=== PATIENT | male | born 1950 | race Caucasian/White ===

== ENCOUNTER → 2017-12-31 09:54 | Outpatient (CLI) | payer MEDICARE, SELFPAY ==
--- NOTE | 2017-12-31 | DI.RAD.S_ITS ---
PROCEDURE: XR HIP W PEL IF DONE RT 2V INDICATIONS: HIP PAIN RT TECHNIQUE: AP pelvis with lateral view(s) of the right hip(s). COMPARISON: None. FINDINGS: Bones: No fractures or dislocations. Pelvic ring appears intact. No suspicious bony lesions. Degenerative hip joint disease with joint space narrowing right greater than left. Marginal osteophytes right femoral head. Soft tissues: The visualized bowel gas pattern is normal. No suspicious soft tissue calcifications. IMPRESSION: Grade 2 osteoarthritis right hip Dictated by: Gato Rice M.D. on 12/31/2017 at 11:25 Approved by: Gato Rice M.D. on 12/31/2017 at 11:26
== END ==
PROVIDERS: PCP Internal Medicine; Visit Provider Student in an Organized Health Care Education/Training Program
DX: M16.11 Unilateral primary osteoarthritis, right hip (principal); M25.551 Pain in right hip
CPT/HCPCS: 73502

== ENCOUNTER 2022-09-19 12:36 | Day surgery (SDC) | payer MEDICARE, SELFPAY ==
--- NOTE | 2022-09-19 | PATH_ITS ---
[facility] Accession Number: [id number] No. of containers..03 Tissue . 01 Material submitted: . PART A: stomach - STOMACH BIOPSY PART B: colon - ASCENDING COLON POLYP PART C: colon - SIGMOID COLON MASS @ 30 CM . 01 Diagnosis: A. Stomach, Biopsy: Body-type mucosa with mild chronic gastritis. No evidence of Helicobacter organisms on H/E stain. Negative for intestinal metaplasia. Negative for dysplasia or malignancy. . B. Ascending Colon, Polyp, Biopsy: Tubulovillous adenoma. No evidence of malignancy or high-grade dysplasia. . C. 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 Please see comment. [facility] 09/22/2022 1336 Local . 01 Comment: Part C: As part of routine air quality consultant, Dr. Fontenot also reviewed part C of this case and agrees with the diagnosis. Dr. Best discussed preliminary results with Dr. Mandy lloyd on 09/22/2022. Mismatch repair IHC will be performed and the results reported as an addendum. . 01 Electronically signed: . Ellen Best MD, Pathologist NPI- [id number] . 01 Gross description: . Part A: STOMACH BIOPSY: Received in formalin are 2 fragment(s) of min, soft tissue measuring 0.4 x 0.2 x 0.1 cm to 0.2 x 0.1 x 0.1 cm submitted entirely in 1 cassette(s) Part B: ASCENDING COLON POLYP: Received in formalin are 4 fragment(s) of min, soft tissue measuring 0.5 x 0.2 x 0.2 cm to 0.2 x 0.1 x 0.1 cm submitted entirely in 1 cassette(s) Part C: SIGMOID COLON MASS @ 30 CM: Received in formalin are multiple fragment(s) of min, soft tissue measuring 2.5 x 1.5 x 0.1 cm in aggregate submitted entirely in 1 cassette(s) /CPE 09/21/2022 0707 Local . 01 Pathologist provided ICD-10: C18.9 . 01 CPT . 675617, 618278, 627347, G77703, [id number] Specimen Comment: A courtesy copy of this report has been sent to [phone] Performed at: 01 [facility] [address] [address], [place], [place] [id number] MD Tyson Geronimo MD Phone: [phone]
[2022-09-19 13:07] VITALS: BP 138/87; PULSE 119; RESP 16; TEMP 36.5; O2SAT 99; BMI 28.0
[2022-09-19] MEDS: LACTATED RINGERS 1,000 ML 200 ML IV (13:18)
--- NOTE | 2022-09-19 13:25 | SUR.PREOP ---
Upon doing VS's. HR was seen to be 100-120 and radial pulse was irregular. Place on monitor, ST with frequent PAC's, occasional PVC's. IV started and fluids given. Anesthesia provider made aware.
--- NOTE | 2022-09-19 13:48 | PM.HP.1 ---
History of Present Illness History of Present Illness Date Patient Seen: 09/19/22 Time Patient Seen: 13:48 Chief complaint: SDC Narrative: 71-year-old male with positive fit test here for diagnostic EGD and colonoscopy. Please refer to the H and P from July 2022 further detail. No interval change in health. Patient History Family & Social History Social History: household members spouse Tobacco & Substance use: Smoking Status Never smoker alcohol intake current alcohol intake frequency 0-2 drinks per day Substance Use Type does not use Meds Home Medications and Allergies Home Medications Medication Instructions Recorded Confirmed Type No Known Home Medications 08/17/22 08/17/22 History Allergies Allergy/AdvReac Type Severity Reaction Status Date / Time No Known Drug Allergies Allergy Unverified 08/17/22 11:47 Exam Vital Signs (past 8 hours): - 09/19/22 13:07 Temperature 97.7 F Pulse Rate 119 H Respiratory Rate 16 Blood Pressure 138/87 Pulse Oximetry 99 Oxygen Delivery Method Room Air Oxygen Delivery Method Room Air Narrative Exam Narrative: General adult man alert oriented no acute distress Assessment & Plan Assessment and plan (1) Positive FIT (fecal immunochemical test): Status: Acute Assessment & Plan narrative: 71-year-old male with melena positive fit test here for diagnostic esophagoduodenoscopy and colonoscopy. Overview of the procedure was again discussed patient. Operative risks including bleeding, missed diagnosis, intestinal injury were discussed. Questions have been answered he is in agreement with this plan. He provides is written and verbal consent to proceed.
[2022-09-19 14:34] VITALS: BP 80/56; PULSE 85; RESP 16; TEMP 36.7; O2SAT 98
--- NOTE | 2022-09-19 14:34 | PM.OP.EC ---
Operative Date/Time/Diagnoses Date of procedure: 09/19/22 Time of procedure: 14:34 Pre-op diagnosis: GI bleed Post-op diagnosis: other (Colonic mass) Procedure & Clinicians Study performed: Esophagoduodenoscopy and colonoscopy Same procedure as scheduled: Yes Indications: 71-year-old man with a positive fit and melanotic stool who is here for EGD and colonoscopy. Surgeon: Gordy Galvan Procedure Notes Procedure in detail: The history and physical was performed/updated and the patient is ASA class is 2. The procedure was discussed in detail with the patient. Potential risks complications including infection, bleeding, missed diagnosis, perforation, need for surgery, and were explained. Their questions were answered and informed consent was obtained. Patient placed in left lateral decubitus position. Time out was performed. Procedural sedation was administered by Anesthesia. A bite block was placed. the scope was inserted into the mouth and advanced through the esophagus and into the stomach. The stomach was without masses, ulcers or gastritis. Biopsy of the stomach was performed with forceps. The pylorus was intubated and the duodenum was normal to the 2nd portion. The scope was retroflexed within the stomach and there was a small hiatal hernia. The scope was withdrawn into the esophagus the Z line was seen at 40 cm from the incisions. There was no Egan's esophagitis, esophageal masses or strictures. Stomach was desufflated and scope removed. Examination began with a thorough inspection of the perianal area there was no evidence of fissures, fistulae, external hemorrhoids or cutaneous malignancy. The colonoscopy scope was then placed into the anal canal and was advanced to the cecum, which was identified by the ileocecal valve, the appendiceal orifice and the confluence of the taenia. The scope was then slowly withdrawn examining colon thoroughly in all directions, irrigating it of any residual stool. Within the ascending colon there was a 5 mm mass removed with cold snare. In the sigmoid colon 30 cm from the anal verge there was a large friable mass of approximately 2 cm. Its appearance is concerning for adenocarcinoma. Multiple portions of the mass were removed with hot snare. The colon distal to the mass was injected with Maria Eugenia ink in 2 quadrants. The patient tolerated the procedure well. They will be discharged once criteria are met. The prep was of good/excellent quality. The withdrawl time was 14 minutes. Specimen(s): other (Gastric, ascending colon polyp, sigmoid mass) Complications: other Impression: Colonic mass concerning for adenocarcinoma Post-procedure Plan for aftercare: Will notify with biopsy findings. Anticipate need for sigmoid colectomy Disposition: same day surgery
[2022-09-19 14:38] VITALS: BP 90/67; PULSE 82; RESP 20; O2SAT 96
[2022-09-19 14:44] VITALS: BP 112/76; PULSE 76; RESP 16; O2SAT 94
[2022-09-19 14:51] VITALS: BP 102/72; PULSE 71; RESP 16; O2SAT 94
== END 2022-09-19 16:00 | disposition home or self-care (01) ==
PROVIDERS: Family Provider Internal Medicine; PCP Nurse Practitioner Family; Referring Provider Surgery; Visit Provider Surgery
PROC: 0DJ08ZZ Inspection of Upper Intestinal Tract, Via Natural or Artificial Opening Endoscopic (ICD-10-PCS; CPT 43235; principal; 2022-09-19 13:45)
PROC: 0DJD8ZZ Inspection of Lower Intestinal Tract, Via Natural or Artificial Opening Endoscopic (ICD-10-PCS; CPT 45378; 2022-09-19 13:45)
DX: C18.9 Malignant neoplasm of colon, unspecified (principal); K44.9 Diaphragmatic hernia without obstruction or gangrene; K29.50 Unspecified chronic gastritis without bleeding; D12.2 Benign neoplasm of ascending colon
CPT/HCPCS: 45385; 43239

== ENCOUNTER → 2022-09-25 12:19 | Outpatient (CLI) | payer MEDICARE, SELFPAY ==
--- NOTE | 2022-09-25 12:21 | DI.CT.S_ITS ---
PROCEDURE: CT CHEST ABD PEL W CON INDICATIONS: Other specified diseases of intestine TECHNIQUE: After the administration of oral and intravenous contrast, axial sections acquired from the supraclavicular neck to the pubic symphysis. Coronal and sagittal reformats were performed. For radiation dose reduction, the following was used: automated exposure control, adjustment of mA and/or kV according to patient size. COMPARISON: None. FINDINGS: Image quality: Excellent. CHEST: Lower Neck: No enlarged lymph nodes. Thyroid: Within normal limits. Axillae: No enlarged lymph nodes. Chest Wall: Unremarkable. Lungs and Airways: No consolidation or suspicious nodules. Right upper lobe calcified granuloma. Pleura: No pneumothorax or pleural effusions. Heart: Heart size is normal. No pericardial effusion. Thoracic Vessels: The aorta and pulmonary arteries demonstrate normal size. Mediastinum and Duyen: No enlarged lymph nodes. Esophagus: No wall thickening. No hiatal hernia. ABDOMEN: Liver: Fluid attenuating hepatic cysts without nodularity. Additional subcentimeter hypoattenuating lesions, too small to characterize by CT. Gallbladder: Unremarkable. Biliary ducts: Unremarkable. Pancreas: Unremarkable. Spleen: Unremarkable. Adrenal Glands: Unremarkable. Kidneys and Ureters: 9.9 cm left renal cystic lesion with a mildly thickened internal septation. No hydronephrosis. Stomach and Bowel: No abnormal wall thickening or region of distinct luminal narrowing. Peritoneum: No abnormal intraperitoneal fluid. No free air. Ventral Wall: No hernia. Abdominal Nodes: No retroperitoneal or mesenteric adenopathy by size criteria. Vessels: Aorta and inferior vena cava are normal in size. PELVIS: Pelvic Organs: Unremarkable. Bladder: Unremarkable. Pelvic Nodes: No enlarged lymph nodes. Miscellaneous: No inguinal hernias are seen. Bones: Grade 1 anterolisthesis of L5 on S1 secondary to pars defects. IMPRESSION: 1. Known primary colon cancer not identified. No suspicious adenopathy. 2. No evidence of metastatic disease. 3. 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 Most of these lesions are benign and if malignant, are usually indolent. these can be followed by imaging at 6 months and 12 months, then annually for total of 5 years. Dictated by: Anish Valdes M.D. on 09/25/2022 at 15:45 Approved by: Anish Valdes M.D. on 09/25/2022 at 15:51
[2022-09-25 13:18] LABS: Estimated Glomerular Filt Rate > 60 mL/min (>60)
== END ==
PROVIDERS: Family Provider Internal Medicine; PCP Nurse Practitioner Family; Referring Provider Surgery; Visit Provider Surgery
DX: C18.9 Malignant neoplasm of colon, unspecified (principal); K63.89 Other specified diseases of intestine; N28.9 Disorder of kidney and ureter, unspecified
CPT/HCPCS: 36415; 71260; 74177; 82565; Q9967